=== PATIENT | female | born 1990 | race Hispanic/Latino ===

== ENCOUNTER → 2025-10-23 09:37 | Outpatient (CLI) | payer OTHER, SELFPAY ==
--- NOTE | 2025-10-23 09:43 | DI.US.S_ITS ---
PROCEDURE: US THYROID INDICATIONS: Neck Swelling TECHNIQUE: Real-time scanning was performed of the thyroid gland, with image documentation. COMPARISON: None. FINDINGS: Thyroid: Right lobe measures 4.5 x 1.4 x 1.3 cm. Left lobe measures 3.3 x 1.2 x 1.2 cm. Isthmus is 0.4 cm thick. Echotexture is homogeneous. IMPRESSION: Unremarkable sonographic appearance of the thyroid. Dictated by: Bill RHODES Interpreted: Oracio Mancini MD on 10/23/2025 at 11:18 Transcribed by: MARISA on 10/23/2025 at 11:19 Approved by: Oracio Mancini M.D. on 10/24/2025 at 15:39
== END ==
LOC: US 09:42
PROVIDERS: PCP Family Medicine; Referring Provider Family Medicine; Visit Provider Family Medicine
DX: R22.1 Localized swelling, mass and lump, neck (principal)
CPT/HCPCS: 76536